=== PATIENT | male | born 1995 | race Caucasian/White ===

== ENCOUNTER 2022-02-15 13:29 | Emergency (ER) | payer MEDICAID, OTHER ==
[~2022-02-15] VITALS: Ht 172.7 cm; Wt 52.3 kg
[~2022-02-15 13:29] MED LIST: DIVA-80 PO; MIRT-89 PO; PALI156D IM; RISP2TAB45 PO
[2022-02-15 14:45] VITALS: BP 139/112
[2022-02-15 14:53] LABS: COVID AG,FIA SOURCE NASAL SWAB
== END 2022-02-15 15:32 | disposition home or self-care (01) ==
LOC: EMS 13:35
DX: B34.9 Viral infection, unspecified (principal); F32.9 Major depressive disorder, single episode, unspecified; F20.9 Schizophrenia, unspecified; Z20.822 Contact with and (suspected) exposure to COVID-19
CPT/HCPCS: 71045; 99284